=== PATIENT | male | born 2000 | race Caucasian/White ===

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

== ENCOUNTER 2023-09-19 06:01 | Emergency (ER) | payer BC, OTHER, SELFPAY ==
--- NOTE | ~2023-09-19 | XR_ITS ---
EXAMINATION: XR chest 1V portable INDICATION: Upper back pain TECHNIQUE: Portable AP chest at 0804 hours COMPARISON: 02/01/2005 FINDINGS: The lungs are free of acute opacities. No pleural effusion or pneumothorax. The cardiomedia stinal silhouette is normal. The visualized bones and soft tissues are unremarkable. IMPRESSION: 1. No acute cardiopulmonary abnormality. Reviewed, dictated and finalized at location B. ATTENDANT
[2023-09-19 06:03] VITALS: BP 135/80; PULSE 80; RESP 18; TEMP 36.2; O2SAT 98
--- NOTE | 2023-09-19 07:05 | PC.NURSE ---
Bedside report to LIEN Mora. Pt resting quietly with visitor at bedside.
--- NOTE | 2023-09-19 07:37 | ECG_ITS ---
Measurements Intervals [place] Rate: 71 P: 59 CT: 128 QRS: 66 QRSD: 88 T: 56 QT: 349 QTc: 381 Interpretive Statements SINUS RHYTHM EARLY REPOLARIZATION NORMAL ECG NO PREVIOUS ECG AVAILABLE FOR COMPARISON Electronically Signed On 09-19-2023 18:16:02 [employer] by Anuel Salas M.D.
--- NOTE | 2023-09-19 07:38 | ED.BACK ---
HPI - Back Pain/Injury General Chief Complaint: Back Pain/Injury Stated Complaint: Back pain Time Seen by Provider: 09/19/23 06:54 History of Present Illness HPI Narrative: 23-year-old male presents to the emergency department for evaluation sharp upper back pain that is worsened with inspiration. Patient states symptoms started few days ago and been persistent. The patient states the pain is worsened with deep inspiration and pain is sharp. Patient states pain does not radiate to his chest. Patient denies any associated shortness of breath. Patient denies any resident of injury, cough colds or fevers, denies any prior history PE or DVT. Patient does not take any medications denies any significant past medical history. Related Data Allergies Allergy/AdvReac Type Severity Reaction Status Date / Time No Known Allergies Allergy Verified 09/19/23 06:06 Review of Systems Review of Systems: All systems reviewed & are unremarkable except as noted in HPI and below PMFSH Past Medical History Medical History (Updated 09/19/23 @ 09:13 by Mickey Claudio MD) No significant past medical history Surgical History Surgical History (Updated 02/14/21 @ 10:43 by Elida Agee, METAL BUFFER) No significant past surgical history Family History Family History (Updated 02/14/21 @ 10:43 by Elida Agee, METAL BUFFER) Other No significant family history Social History Social History (Updated 02/14/21 @ 10:44 by Elida Agee, METAL BUFFER) Smoking status: Former smoker Alcohol intake: never Substance use: never Living arrangements: with family Gender identity (if verbalized by the patient): Male Exam Narrative: APPEARANCE: Well appearing, no pain, no distress, well-nourished. HEAD: normocephalic, atraumatic. EYES: PERRLA/EOMI, conjunctivae clear. NOSE: Normal no drainage EARS:TMS clear with good light reflex. THROAT: Pharynx clear, no exudate. NECK: Supple. No adenopathy, no masses. RESPIRATORY: Airway patent, respirations nonlabored. Clear to auscultation bilaterally, no rales, rhonchi, wheezing. CARDIOVASCULAR: Regular rate and rhythm without murmurs rubs or gallops. ABDOMINAL: Soft, nontender, nondistended, normal bowel sounds MUSCULOSKELETAL: Reported pain at the upper back with no reproducible tenderness to palpation. NEURO: Alert. Cranial nerves II through XII intact. Grossly intact SKIN: Warm, dry. Normal Color Course Course Emergency Course: Patient had a negative workup and is being treated as pleurisy versus musculoskeletal. Patient was prescribed Flexeril for spasm and advised to take scheduled anti-inflammatories. Vital Signs Vital signs: Vital Signs Temperature 97.1 F L 09/19/23 06:03 Pulse Rate 80 09/19/23 06:03 Respiratory Rate 18 09/19/23 06:03 Blood Pressure 135/80 09/19/23 06:03 Pulse Oximetry 98 09/19/23 06:03 Oxygen Delivery Room Air 09/19/23 06:03 Temperature 97.1 F L 09/19/23 06:03 Pulse Rate 78 09/19/23 09:34 Respiratory Rate 16 09/19/23 09:34 Blood Pressure 136/88 09/19/23 09:34 Pulse Oximetry 98 09/19/23 09:34 Oxygen Delivery Room Air 09/19/23 06:03 MDM - Back Pain/Injury MDM Narrative Medical decision making narrative: 23-year-old male presenting ED for evaluation her back pain. Patient's pain is very pleuritic in nature. Patient had EKG ordered to evaluate for cardiac etiology. D-dimer was ordered to evaluate for pulmonary embolism. Toradol was ordered for the patient's pain. On re-evaluation patient states he did not have significant improvement of his symptoms but patient is resting comfortably. Patient is afebrile with no leukocytosis and a stable hemoglobin of 15.8. Patient's D-dimer was negative. Patient had has no acute abnormalities on his CMP than a mildly elevated T bili but AST ALT alk-phos were normal. Patient was negative for influenza RSV and for COVID. Chest x-ray showed no acute cardiopulmonary abnormalit
[2023-09-19 07:49] VITALS: BP 112/82; PULSE 66; RESP 16; O2SAT 100
[2023-09-19] MEDS: KETOROLAC 15 MG/ML VIAL (*BKC) IV PUSH (07:59)
[2023-09-19 08:00] LABS: Basophils Absolute Auto 0.1 K/mm3 (0.0-0.1); Basophils Percent Auto 1.1 % (0.2-1.2); Eosinophils Absolute Auto 0.1 K/mm3 (0-0.3); Eosinophils Percent Auto 2.3 % (0-4.4); Hematocrit 47.5 % (42.0-52.0); Hemoglobin 15.8 g/dL (14.0-18.0); Immature Granulocyte Absolute 0.06 K/mm3 (0.00-0.031); Immature Granulocyte Percent A 1.1 % (0-0.5); Lymphocytes Absolute Auto 1.55 K/mm3 (0.9-3.2); Lymphocytes Percent Auto 29.2 % (18.3-44.2); Mean Corpuscular HGB Conc 33.3 g/dl (32-36); Mean Corpuscular Hemoglobin 29.1 pg (26-34); Mean Corpuscular Volume 87.5 fl (80-100); Mean Platelet Volume 10.1 fl (7.4-10.4); Monocytes Absolute Auto 0.5 K/mm3 (0.1-0.6); Monocytes Percent Auto 8.5 % (2.6-8.5); Neutrophils Absolute Auto 3.1 K/mm3 (1.3-6.7); Neutrophils Percent Auto 57.8 % (45.5-73.1); Platelet Count Result 240 k/mm3 (150-375); Red Blood Count 5.43 M/mm3 (4.6-6.20); White Blood Count 5.3 K/mm3 (4.5-10.0)
[2023-09-19 08:09] LABS: Alanine Aminotransferase 15 U/L (6-50); Albumin Level 4.4 g/dL (3.5-5.1); Alkaline Phosphatase 54 U/L (38-126); Anion Gap 7 mmol/L (8-16); Aspartate Amino Transferase 25 U/L (17-59); Bilirubin,Total 1.5 mg/dL (0.2-1.3); Blood Urea Nitrogen 18 mg/dL (9-20); Calcium 9.2 mg/dL (8.4-10.2); Carbon Dioxide 30 mmol/L (22-30); Chloride 104 mmol/L (98-107); Estimated CRCL calculation 122 ml/min; Estimated Glomerular Filt Rate > 60; Glucose 95 mg/dL (65-110); Potassium 4.2 mmol/L (3.4-5.0); Sodium 141 mmol/L (137-145)
[2023-09-19 08:31] LABS: D Dimer 0.23 ug/mL (<0.48)
[2023-09-19 08:35] LABS: Influenza A QL RT-PCR Negative (Negative); Influenza B QL RT-PCR Negative (Negative); RSV RNA, RT-PCR Negative (Negative); SARS-CoV-2 RNA PCR Negative (Negative)
[2023-09-19 09:34] VITALS: BP 136/88; PULSE 78; RESP 16; O2SAT 98
== END 2023-09-19 09:35 | disposition home or self-care (01) ==
PROVIDERS: Emergency Provider Emergency Medicine; PCP Pediatrics
DX: M54.6 Pain in thoracic spine (principal); Z20.822 Contact with and (suspected) exposure to COVID-19; Z87.891 Personal history of nicotine dependence
CPT/HCPCS: 36415; 71045; 80053; 85025; 85380; 87637; 93005; 96374; 99284; J1885

== ENCOUNTER 2024-03-23 07:19 | Emergency (ER) | payer OTHER, SELFPAY ==
--- NOTE | ~2024-03-23 | XR_ITS ---
Right wrist Technique: PA, oblique, lateral, and ulnar deviation views were obtained. Clinical History: Pain Findings: No acute fracture or dislocation is seen. Osseous alignment is anatomic. Joint spaces are p reserved. Soft tissues are unremarkable. Impression: Unremarkable right wrist radiographs. Reviewed, dictated and finalized at location . Impression: Unremarkable right wrist radiographs.
[2024-03-23 07:19] VITALS: BP 135/82; PULSE 64; RESP 16; TEMP 36.6; O2SAT 98
[2024-03-23 07:25] VITALS: BP 128/92; PULSE 83; RESP 16; O2SAT 99
--- NOTE | 2024-03-23 07:36 | ED.GENADULT ---
HPI - General Adult General Chief complaint: Extremity Injury, Upper Stated complaint: R WRIST INJURY Time Seen by Provider: 03/23/24 07:21 History of Present Illness HPI narrative: 23-year-old male presenting to the emergency department for evaluation for a ground level fall. Patient was walking at work and caring items when he tripped over a wire and fell forward and injured his right wrist. Patient has increased pain with dorsal and palmar flexion of the right wrist. No deformity, no ecchymosis, neurovascularly intact. Patient denies any other pain or injury. Related Data Allergies Allergy/AdvReac Type Severity Reaction Status Date / Time No Known Allergies Allergy Verified 09/19/23 06:06 Review of Systems Review of Systems: All systems reviewed & are unremarkable except as noted in HPI and below PMFSH Past Medical History Medical History (Updated 03/23/24 @ 07:48 by Mickey Claudio MD) No significant past medical history Surgical History Surgical History (Updated 02/14/21 @ 10:43 by Elida Agee, DERRICK HAND) No significant past surgical history Family History Family History (Updated 02/14/21 @ 10:43 by Elida Agee, DERRICK HAND) Other No significant family history Social History Social History (Updated 02/14/21 @ 10:44 by Elida Agee, DERRICK HAND) Smoking status: Former smoker Alcohol intake: never Substance use: never Living arrangements: with family Gender identity (if verbalized by the patient): Male Exam Narrative: APPEARANCE: Well appearing, no pain, no distress, well-nourished. HEAD: normocephalic, atraumatic. EYES: PERRLA/EOMI, conjunctivae clear. NOSE: Normal no drainage RESPIRATORY: Airway patent, respirations nonlabored. Clear to auscultation bilaterally, no rales, rhonchi, wheezing. CARDIOVASCULAR: Regular rate and rhythm without murmurs rubs or gallops. ABDOMINAL: Soft, nontender, nondistended, normal bowel sounds MUSCULOSKELETAL: Right wrist pain with limited range of motion NEURO: Alert. Cranial nerves II through XII intact. Grossly intact SKIN: Warm, dry. Normal Color Course Course Emergency Course: X-rays were negative for acute fracture dislocation. Patient was provided Leroy wrap for comfort discharged home. Vital Signs Vital signs: Vital Signs Temperature 97.9 F 03/23/24 07:19 Pulse Rate 64 03/23/24 07:19 Respiratory Rate 16 03/23/24 07:19 Blood Pressure 135/82 03/23/24 07:19 Pulse Oximetry 98 03/23/24 07:19 Oxygen Delivery Room Air 03/23/24 07:19 Temperature 97.9 F 03/23/24 07:19 Pulse Rate 77 03/23/24 08:01 Respiratory Rate 16 03/23/24 08:01 Blood Pressure 107/81 03/23/24 08:01 Pulse Oximetry 98 03/23/24 08:01 Oxygen Delivery Room Air 03/23/24 07:19 Medical Decision Making MDM Narrative Medical decision making narrative: 23-year-old male presenting to the emergency department for evaluation for right wrist pain. X-rays were negative for acute fracture dislocation. Patient was provided Leroy wrap for comfort. Patient was advised to take Tylenol and ibuprofen for pain control. Differential Diagnosis Differential Diagnosis: Wrist sprain, wrist fracture Vital Signs Vital Signs: Vital Signs Temperature 97.9 F 03/23/24 07:19 Pulse Rate 64 03/23/24 07:19 Respiratory Rate 16 03/23/24 07:19 Blood Pressure 135/82 03/23/24 07:19 Pulse Oximetry 98 03/23/24 07:19 Oxygen Delivery Room Air 03/23/24 07:19 Temperature 97.9 F 03/23/24 07:19 Pulse Rate 77 03/23/24 08:01 Respiratory Rate 16 03/23/24 08:01 Blood Pressure 107/81 03/23/24 08:01 Pulse Oximetry 98 03/23/24 08:01 Oxygen Delivery Room Air 03/23/24 07:19 Imaging Data Radiologist's impression: Impressions Wrist X-Ray 03/23/24 07:38 Impression: Unremarkable right wrist radiographs. Discharge Plan Discharge Clinical Impression: Sprain and strain of wrist Patient
[2024-03-23 07:46] VITALS: BP 122/84; PULSE 79; RESP 16; O2SAT 100
[2024-03-23 08:01] VITALS: BP 107/81; PULSE 77; RESP 16; O2SAT 98
== END 2024-03-23 08:05 | disposition home or self-care (01) ==
PROVIDERS: Emergency Provider Emergency Medicine; PCP Pediatrics
DX: S63.501A Unspecified sprain of right wrist, initial encounter (principal); S66.911A Strain of unspecified muscle, fascia and tendon at wrist and hand level, right hand, initial encounter; W18.09XA Striking against other object with subsequent fall, initial encounter
CPT/HCPCS: 73110; 99283

== ENCOUNTER 2025-01-29 07:54 | Emergency (ER) | payer OTHER, SELFPAY ==
--- OUTSIDE RECORDS SUMMARY | 2025-01-29 07:57 | XMS_ITS | Referral Summary ---
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 Gender Identity Not on file Sexual Orientation Not on file Last Filed Vital Signs Vital Sign Reading Time Taken Comments Blood Pressure 131/86 03/08/2022 10:08 AM CDT Pulse 81 03/08/2022 10:08 AM CDT Temperature 36.7 C (98 F) 03/08/2022 10:08 AM CDT Respiratory Rate 16 03/08/2022 10:08 AM CDT Oxygen Saturation 98% 03/08/2022 10:08 AM CDT Inhaled Oxygen Concentration - - Weight 64.5 kg (142 lb 3.2 oz) 03/08/2022 10:08 AM CDT Height 177.8 cm (5' 10) 03/08/2022 10:08 AM CDT Body Mass Index 20.4 03/08/2022 10:08 AM CDT Plan of Treatment Not on file Insurance WORK[employer] COMPENSATION [place] [place] [id number] Care Teams Adult Live In Caregiver Relationship Specialty Start Date End Date Mikki Craig MD [address] [place] [address] PCP - General Pediatrics 03/08/22
--- OUTSIDE RECORDS SUMMARY | 2025-01-29 07:57 | XMS_ITS | Clinical Summary ---
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 Gender Identity Not on file Sexual Orientation [...] 03/08/2022 10:08 AM CDT Plan of Treatment Health Maintenance Due Date Last Done Comments Depression Screening 2002 Hepatitis C Screening 2002 Meningococcal B Vaccine (1 o f 2 - Standard) 2018 Regular Well Visit/Exam 18-64 2020 DTaP/Tdap/Td Vaccine (7 - Td or Tdap) 01/23/2024 01/22/2014, 08/11/2007, 10/17/2003, Additional history exists Covid-19 Vaccine (2023-2 5 season) 2024 10/30/2020 Influenza Vaccine (Season Ended) 2025 Hepatitis B Screening Completed 07/12/2003 , 2002, 2002 Pneumococcal vaccine <65 Completed 003, 01/04/2003, 2002, Additional history exists Varicella Vaccines Completed 08/11/2007, 10/17/2003 HPV Vaccines Completed 02/28/2017, 01/22/2014 Insurance [employer] COMP[employer] [address] Care Teams Manager Front Relationship Specialty Start Date End Date Mikki Craig MD [address] [place] [address] PCP - General Pediatrics 03/08/22
[2025-01-29 07:58] VITALS: BP 137/86; PULSE 81; RESP 19; TEMP 36.6; O2SAT 98
--- NOTE | 2025-01-29 08:05 | ED.GIBLEED ---
HPI - GI Bleed General Chief complaint: GI Bleed Stated complaint: blood in stool Time Seen by Provider: 01/29/25 08:04 Source: patient Mode of arrival: ambulatory Limitations: no limitations History of Present Illness HPI Narrative: 24 YEARS OLD WHITE MALE COMPLAINING OF FRESH RED BRIGHT BLOOD ON THE WIPES AFTER HAVING A BOWEL MOVEMENT THIS MORNING. PATIENT REPORT HAVING SIMILAR SYMPTOM 1 YEAR AGO. PATIENT REPORTS SOME ITCHING AT THE ANAL AREA FOR ABOUT 1 MONTH. SLIGHT DISCOMFORT. PATIENT IS HEALTHY OTHERWISE. Related Data Allergies Allergy/AdvReac Type Severity Reaction Status Date / Time No Known Allergies Allergy Verified 01/29/25 08:02 Review of Systems Review of Systems: All systems reviewed & are unremarkable except as noted in HPI and below PMFSH Past Medical History Medical History No significant past medical history Surgical History Surgical History No significant past surgical history Family History Family History Other No significant family history Social History Social History Smoking status: Former smoker Alcohol intake: never Substance use: never Living arrangements: with family Gender identity (if verbalized by the patient): Male Exam Narrative: GENERAL APPEARANCE: WELL-DEVELOPED, WELL-NOURISHED SKIN: NORMAL COLOR HEAD: NORMOCEPHALIC, NONTRAUMATIC EYES: CLEAR CONJUNCTIVA ENT: OROPHARYNX NORMAL, EARS NORMAL, NOSE NORMAL NECK: SUPPLE, NONTENDER CHEST AND RESPIRATORY: AIRWAY PATENT, NO RESPIRATORY DISTRESS, NO ACCESSORY MUSCLE USE HEART: REGULAR RATE/RHYTHM ABDOMEN: SOFT, NONTENDER, NO ORGANOMEGALY, QUIET BOWEL SOUNDS, RECTAL EXAM POSITIVE FOR EXTERNAL HEMORRHOID, NO ACTIVE BLEEDING, GUAIAC NEGATIVE VASCULAR: NORMAL PERIPHERAL PULSES, NORMAL CAPILLARY REFILL. MUSCULOSKELETAL: NORMAL RANGE OF MOTION, NONTENDER BACK NEUROLOGIC: ALERT AND ORIENTED ?3, PROPERTY PRESERVATION SPECIALIST IS NORMAL TESTED, NO GROSS MOTOR DEFICIT Course Vital Signs Vital signs: Vital Signs Temperature 36.6 C 01/29/25 07:58 Pulse Rate 81 01/29/25 07:58 Respiratory Rate 19 01/29/25 07:58 Blood Pressure 137/86 01/29/25 07:58 Pulse Oximetry 98 01/29/25 07:58 Oxygen Delivery Room Air 01/29/25 07:58 Temperature 36.6 C 01/29/25 07:58 Pulse Rate 81 01/29/25 07:58 Respiratory Rate 19 01/29/25 07:58 Blood Pressure 137/86 01/29/25 07:58 Pulse Oximetry 98 01/29/25 07:58 Oxygen Delivery Room Air 01/29/25 07:58 MDM - GI Bleed MDM Narrative Medical decision making narrative: RECTAL BLEED VITAL SIGNS ARE STABLE PHYSICAL EXAMINATION POSITIVE FOR EXTERNAL HEMORRHOIDS DISCHARGED ON ANUSOL SUPPOSITORY AND COLACE Critical Care Time Critical Care Time Critical Care Time: No Discharge Plan Discharge Clinical Impression: Hemorrhoids Patient Disposition: Home Condition: Stable Instructions: Hemorrhoids (ED) Additional Instructions: RETURN IF SYMPTOMS ARE WORSENING , CALL YOUR FAMILY PHYSICIAN FOR APPOINTMENT, TAKE TYLENOL NEEDED FOR ACHES AND PAIN, CONTINUE HOME MEDICATIONS. Patient Language: [place] Irish Prescriptions: New hydrocortisone acetate [Anucort-HC] 25 mg suppository 25 mg RECTAL BID Qty: 24 0RF docusate sodium [Colace] 100 mg capsule 100 mg PO BID Qty: 20 0RF No Action doxycycline monohydrate 100 mg tablet 100 mg PO BID 10 Days Qty: 20 0RF cyclobenzaprine 10 mg tablet 10 mg PO BID PRN (Reason: muscle spasm) Qty: 14 0RF Follow-up/Referrals: Mikki Craig MD [Primary Care Provider] - Stand Alone Forms: Work/School Release IP
[2025-01-29 08:13] LABS: Hematocrit 44.9 % (42.0-52.0); Hemoglobin 15.5 g/dL (14.0-18.0); Immature Granulocyte Percent A 0.2 % (0-0.5); Lymphocytes Absolute Auto 1.59 K/mm3 (0.9-3.2); Mean Corpuscular HGB Conc 34.5 g/dl (32-36); Mean Corpuscular Hemoglobin 29.9 pg (26-34); Mean Corpuscular Volume 86.5 fl (80-100); Nucleated Red Blood Cells Absolute Auto 0.000 K/mm3 (0.0-0.012); Nucleated Red Blood Cells Perc 0.0 % (0.0-0.2); Platelet Count Result 267 k/mm3 (150-375); Red Blood Count 5.19 M/mm3 (4.6-6.20); White Blood Count 6.0 K/mm3 (4.5-10.0)
[2025-01-29 08:27] LABS: INR 1.1; Prothrombin Time 14.0 Seconds (11.1-14.7)
[2025-01-29 08:28] LABS: Partial Thromboplastin Time 25.4 Seconds (22.3-36.8)
[2025-01-29 09:24] LABS: Alanine Aminotransferase 15 U/L (6-50); Albumin Level 4.6 g/dL (3.5-5.1); Alkaline Phosphatase 39 U/L (38-126); Anion Gap 10 mmol/L (4-12); Aspartate Amino Transferase 33 U/L (17-59); Bilirubin,Total 2.8 mg/dL (0.2-1.3); Blood Urea Nitrogen 17 mg/dL (9-20); Calcium 9.5 mg/dL (8.4-10.2); Carbon Dioxide 27 mmol/L (22-30); Chloride 102 mmol/L (98-107); Estimated CRCL calculation 108 ml/min; Estimated Glomerular Filt Rate > 60; Glucose 104 mg/dL (65-110); Potassium 3.9 mmol/L (3.4-5.0); Sodium 139 mmol/L (137-145); Total Protein 7.5 g/dL (6.3-8.2)
== END 2025-01-29 08:39 | disposition home or self-care (01) ==
PROVIDERS: Emergency Provider Emergency Medicine; PCP Pediatrics
DX: K64.9 Unspecified hemorrhoids (principal); Z87.891 Personal history of nicotine dependence
CPT/HCPCS: 36415; 80053; 85025; 85610; 85730; 86850; 86900; 86901; 99283

== ENCOUNTER 2025-03-06 14:22 | Emergency (ER) | payer OTHER, SELFPAY ==
[2025-03-06] VITALS (25 sets, daily range): BP systolic 119–147; BP diastolic 73–97; PULSE 87–128; RESP 13–24; TEMP 37.3–37.8; O2SAT 94–100
--- NOTE | ~2025-03-06 | CT_ITS ---
EXAMINATION: CT abdomen pelvis w con DATE: 03/07/2025 07:26 INDICATION: Perirectal abscess. TECHNIQUE: Computed tomography (CT) of the abdomen and pelvis was performed with 100 cc Omnipaque 350 intravenous contrast. The dose-length product was 261.36 mGy-cm. Automated exposure control and iter ative reconstruction technique were employed. COMPARISON: MRI lumbar spine dated 03/06/2025. FINDINGS: Lung bases unremarkable. Heart size normal. No significant pleural or pericardial effusion. There is abnormal thickening of the ascending and proximal transverse colon, consistent with colitis , most likely infectious/inflammatory. Fatty infiltration of the liver. The spleen, pancreas, adrenal glands and kidneys are unremarkable. Gallbladder is present. Barrios catheter present in the bladder. Small amount of nondependent gas in the bladder, iatrogenic most likely. No significant vascular abno rmality. No lymphadenopathy. No perirectal abscess identified. No free air or free fluid. There are s urgical changes of fusion between L1-L4. There is an L2 burst fracture with postoperative change of L 2 laminectomy. IMPRESSION: 1. Mural thickening ascending and proximal transverse colon, consistent with colitis, most likely inf ectious/inflammatory. 2: L2 burst fracture with postoperative change of L2 laminectomy and instrumented posterior spinal fu lucian at T12-L4. Reviewed, dictated and finalized at location A. IMPRESSION: 1. Mural thickening ascending and proximal transverse colon, consistent with co litis, most likely infectious/inflammatory. 2: L2 burst fracture with postoperative change of L2 laminectomy and instrument ed posterior spinal fusion at T12-L4.
--- NOTE | ~2025-03-06 | MR_ITS ---
EXAMINATION: MR lumbar spine wo/w con DATE: 03/06/2025 17:43 INDICATION: Urinary retention. Recent lumbar surgery. TECHNIQUE: Magnetic resonance imaging (MRI) of the lumbar spine was performed without and with 11 mL Multihance intravenous contrast. Sequences included sagittal T2-weighted FSE, sagittal T2-weighted FS FSE, and sagittal and axial T1-weighted FSE. Postcontrast sequences included axial T2-weighted FSE, sagittal T1-weighted FSE, and axial and sagittal T1-weighted FS FSE. COMPARISON: None FINDINGS: L2 burst fracture with 20% anterior to central vertebral body height loss and 4 mm retropulsion. This is spanned by instrumented posterior spinal fusion extending from T12 through L4. There is metallic magnetic field artifact associated with bilateral vertical laura and pedicle screw fixations at each of these levels. This somewhat limits evaluation of the immediately adjacent bone and soft tissues. L2 laminectomy and partial laminectomies at L1 and L3. There are peripherally enhancing fluid collection s extending craniocaudally around the bilateral vertical rods and pedicle screws which given the rece nt surgery are most likely to represent postoperative hematoma/stroma is although differential would include abscess in the appropriate clinical settings. Remaining vertebral body heights are normal. T1 and T2 hyperintense hemangioma at L5. Mild disc desiccation, mild disc height loss and annular fissu re at L5-S1. Remaining discs are normal. The conus medullaris terminates at L1. There is normal signa l in the caudal spinal cord. No abnormal enhancing cord lesions. There is no evident thickening of th e final terminale with normal appearance and distribution of the nerve roots of the cauda equina. The following disc levels are specifically discussed: T12-L1: The disc does not extend beyond the endplate margin. Instrumented posterior spinal fusion wit h magnetic field artifact. There is no neural foraminal stenosis. There is no central canal stenosis. L1-L2: The disc does not extend beyond the endplate margin. Instrumented posterior spinal fusion. The re is mild left neural foraminal stenosis. There is no central canal stenosis with posterior decompre ssion with L2 laminectomy. L2-L3: Mild disc protrusions at the bilateral foraminal zones. Instrumented posterior spinal fusion. There is minimal bilateral neural foraminal stenosis. There is no central canal stenosis with posteri or decompression. L3-L4: Disc is minimally bulging with annular fissure. Instrumented posterior spinal fusion. There is minimal bilateral neural foraminal stenosis. There is no central canal stenosis. L4-L5: The disc does not extend beyond the endplate margin. There is mild bilateral facet joint osteo arthritis. There is mild left and minimal right neural foraminal stenosis. There is no central canal stenosis. L5-S1: Disc is mildly bulging with annular fissure and superimposed small right paracentral disc prot rusion. There is mild bilateral facet joint osteoarthritis. There is mild bilateral, right greater th an left neural foraminal stenosis. There is mild central canal stenosis with mild narrowing of the ri ght lateral recess. IMPRESSION: 1. L2 burst fracture with postoperative change of recent L2 laminectomy, partial thickness at L1 and L3 and T12-L4 instrumented posterior spinal fusion with bilateral vertical laura and pedicle screw fixa tion. 2. Postoperative fluid collections extending craniocaudally along the bilateral vertical rods and ped icle screws most likely postoperative hematoma/seromas the differential would include abscess in the appropriate clinical setting. 3. Mild lumbosacral and minimal lumbar spondylosis. The filum terminale and cauda equina appear stormy l. Reviewed, dictated and finalized at location A. IMPRESSION: 1. L2 burst fracture with postoperative change of recent L2 laminectomy, partia l thickness at L1 and L3 and T12-L4 instrumented posterior spinal fusion with b ilateral vertical laura and pedicle screw fixation. 2. Postoperative fluid collections extending craniocaudally along the bilateral vertical rods and pedicle screws most likely postoperative hematoma/seromas th e differential would include abscess in the appropriate clinical setting. 3. Mild lumbosacral and minimal lumbar spondylosis. The filum terminale and cau da equina appear normal.
--- OUTSIDE RECORDS SUMMARY | 2025-03-06 14:25 | XMS_ITS | Clinical Summary ---
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 Moderately to severely decreased 30 - 44 mL/min/1.73m2 Severely decreased 15 - 29 mL/min/1.73m2 Kidney Failure < 15 mL/min/1.73m2 *Relative to young adult level Estimated glomerular filtration rate is determined by the 2020 CKD-EPI equation recommended by the National Kidney Foundation (A Unifying Approach to GFR Estimation: Recommendations of the NKF-ASK Task Force on Reassessing the Inclusion of Race in Diagnosing Kidney Disease, JASN 2020). The CKD-EPI equation should not be used for patients with unstable renal function and has not been validated in children and those over 70. Current interpretive data was last reviewed 2021. Blood 02/25/2025 11:0 1 PM CDT 02/25/2025 11:32 PM CDT us Micheal Pelaez MD LAB BLOOD ORDERABLES Final Resu lt [facility] Department [place] [address] * (ABNORMAL) Differential, auto (02/25/2025 11:01 PM CDT) Neutrophil abs 9.65(H) 1.50 - 6.50 K/cumm Imm gran abs 0.12(H) 0.00 - 0.10 K/cumm [facility] Lymphocyte abs 1.10 0.80 - 3.30 K/cumm [facility] Monocyte abs 1.59(H) 0.20 - 0.80 K/cumm [facility] Eosinophil abs 0.21 0.00 - 0.50 K/cumm [facility] Basophil abs 0.04 0.00 - 0.10 K/cumm [facility] Neutrophil pct 75.9 % [facility] Comment: Interpretive Data Percent cell count reference ranges are not reported, since discordance with absolute values may lead to misinterpretation of CBC data. Current Interpretive Data was last revised on 2017. Imm gran pct 0.9 % [facility] Comment: Interpretive Data Percent cell count reference ranges are not reported, since discordance with absolute values may lead to misinterpretation of CBC data. Current Interpretive Data was last revised on 2017. Lymphocyte pct 8.7 % [facility] Comment: Interpretive Data Percent cell count reference ranges are not reported, since discordance with absolute values may lead to misinterpretation of CBC data. Current Interpretive Data was last revised on 2017. Monocyte pct 12.5 % [facility] Comment: Interpretive Data Percent cell count reference ranges are not reported, since discordance with absolute values may lead to misinterpretation of CBC data. Current Interpretive Data was last revised on 2017. Eosinophil pct 1.7 % [facility] Comment: Interpretive Data Percent cell count reference ranges are not reported, since discordance with absolute values may lead to misinterpretation of CBC data. Current Interpretive Data was last revised on 2017. Basophil pct 0.3 % [facility] Comment: Interpretive Data Percent cell count reference ranges are not reported, since discordance with absolute values may lead to misinterpretation of CBC data. Current Interpretive Data was last revised on 2017. Blood 02/25/2025 11:0 1 PM CDT 02/25/2025 11:31 PM CDT Micheal Pelaez MD LAB BLOOD ORDERABLES Final Resu lt Performing Organization Address City/[facility]/ZIP Co de Phone Number [facility] Department [place] [address] * (ABNORMAL) CBC with auto differential (02/25/2025 11:01 PM CDT) WBC 12.71(H) 3.80 - 9.90 K/cumm Hgb 11.0(L) 13.0 - 17.5 g/dL [facility] Hct 31.4(L) 38.9 - 50.3 % [facility] Plt 248 150 - 400 K/cumm [facility] MPV 10.1 9.1 - 12.3 fL [facility] RBC 3.65(L) 4.30 - 5.80 M/cumm [facility] MCV 86.0 81.3 - 96.4 fL [facility] MCH 30.1 27.1 - 33.3 pg [facility] MCHC 35.0 32.3 - 35.7 g/dL [facility] RDW CV 12.1 11.1 - 14.9 % [facility] RDW SD 37.8 35.7 - 48.1 fL [facility] NRBC abs 0.00 0.00 - 0.01 K/cumm [facility] Blood 02/25/2025 11:0 1 PM CDT 02/25/2025 11:31 PM CDT Micheal Pelaez MD LAB BLOOD ORDERABLES Final Resu lt [facility] Department [place] [address] * (ABNORMAL) Basic metabolic panel (02/25/2025 11:01 PM CDT) Pathologist [facility] Sodium 136 135 - 145 mmol/L Potassium, pl 3.8 3.3 - 4.9 mmol/L [facility] Chloride 103 97 - 110 mmol/L [facility] CO2 27 22 - 32 mmol/L [facility] Anion gap 6 2 - 15 mmol/L [facility] BUN 16 6 - 25 mg/dL [facility] Creatinine 0.49(L) 0.80 - 1.30 mg/dL [facility] Glucose 95 70 - 199 mg/dL [facility] Comment: Interpretive Data Fasting glucose >/= 126 mg/dl is diagnostic for diabetes. Fasting is defined as no caloric intake for at least 8 hours. Fasting glucose between 100 mg/dl to 125 mg/dl is diagnostic of prediabetes. In a patient with classic symptoms of hyperglycemia or hyperglycemic crisis, a random glucose >/= 200 mg/dl is diagnostic for diabetes. In the absence of unequivocal hyperglycemia, results should be confirmed by repeat testing. The classification and Diagnosis of Diabetes Diabetes Care 2021; 46: S19-S40. Current interpretive data was last revised 2022. Calcium 7.9(L) 8.5 - 10.3 mg/dL [facility] Blood 02/25/2025 11:0 1 PM CDT 02/25/2025 11:32 PM CDT us Micheal Pelaez MD LAB BLOOD ORDERABLES Final Resu lt [facility] Department [place] [address] * eGFR (02/24/2025 9:07 PM CDT) [facility] eGFR >90 >=60 mL/min/1. 73 m2 Comment: Interpretive Data Reference Interval Normal >/= 90 mL/min/1.73m2 Mildly decreased* 60 - 89 mL/min/1.73m2 Mildly to moderately decreased 45 - 59 mL/min/1.73m2 Moderately to severely decreased 30 - 44 mL/min/1.73m2 Severely decreased 15 - 29 mL/min/1.73m2 Kidney Failure < 15 mL/min/1.73m2 *Relative to young adult level Estimated glomerular filtration rate is determined by the 2020 CKD-EPI equation recommended by the National Kidney Foundation (A Unifying Approach to GFR Estimation: Recommendations of the NKF-ASK Task Force on Reassessing the Inclusion of Race in Diagnosing Kidney Disease, JASN 2020). The CKD-EPI equation should not be used for patients with unstable renal function and has not been validated in children and those over 70. Current interpretive data was last reviewed 2021. Blood 02/24/2025 9:07 PM CDT 02/24/2025 9:20 PM CDT us Micheal Pelaez MD LAB BLOOD ORDERABLES Final Resu lt [facility] Department [place] [address] * (ABNORMAL) Differential, auto (02/24/2025 9:07 PM CDT) Neutrophil abs 7.93(H) 1.50 - 6.50 K/cumm Imm gran abs 0.07 0.00 - 0.10 K/cumm [facility] Lymphocyte abs 1.14 0.80 - 3.30 K/cumm [facility] Monocyte abs 1.66(H) 0.20 - 0.80 K/cumm [facility] Eosinophil abs 0.07 0.00 - 0.50 K/cumm [facility] Basophil abs 0.04 0.00 - 0.10 K/cumm [facility] Neutrophil pct 72.8 % [facility] Comment: Interpretive Data Percent cell count reference ranges are not reported, since discordance with absolute values may lead to misinterpretation of CBC data. Current Interpretive Data was last revised on 2017. Imm gran pct 0.6 % [facility] Comment: Interpretive Data Percent cell count reference ranges are not reported, since discordance with absolute values may lead to misinterpretation of CBC data. Current Interpretive Data was last revised on 2017. Lymphocyte pct 10.4 % [facility] Comment: Interpretive Data Percent cell count reference ranges are not reported, since discordance with absolute values may lead to misinterpretation of CBC data. Current Interpretive Data was last revised on 2017. Monocyte pct 15.2 % [facility] Comment: Interpretive Data Percent cell count reference ranges are not reported, since discordance with absolute values may lead to misinterpretation of CBC data. Current Interpretive Data was last revised on 2017. Eosinophil pct 0.6 % [facility] Comment: Interpretive Data Percent cell count reference ranges are not reported, since discordance with absolute values may lead to misinterpretation of CBC data. Current Interpretive Data was last revised on 2017. Basophil pct 0.4 % [facility] Comment: Interpretive Data Percent cell count reference ranges are not reported, since discordance with absolute values may lead to misinterpretation of CBC data. Current Interpretive Data was last revised on 2017. Blood 02/24/2025 9:07 PM CDT 02/24/2025 9:21 PM CDT us Micheal Pelaez MD LAB BLOOD ORDERABLES Final Resu lt [facility] Department [place] [address] * (ABNORMAL) CBC with auto differential (02/24/2025 9:07 PM CDT) WBC 10.91(H) 3.80 - 9.90 K/cumm Hgb 11.2(L) 13.0 - 17.5 g/dL [facility] Hct 32.1(L) 38.9 - 50.3 % [facility] Plt 219 150 - 400 K/cumm [facility] MPV 9.8 9.1 - 12.3 fL [facility] RBC 3.76(L) 4.30 - 5.80 M/cumm [facility] MCV 85.4 81.3 - 96.4 fL [facility] MCH 29.8 27.1 - 33.3 pg [facility] MCHC 34.9 32.3 - 35.7 g/dL [facility] RDW CV 12.2 11.1 - 14.9 % [facility] RDW SD 37.9 35.7 - 48.1 fL [facility] NRBC abs 0.00 0.00 - 0.01 K/cumm [facility] Blood 02/24/2025 9:07 PM CDT 02/24/2025 9:21 PM CDT us Micheal Pelaez MD LAB BLOOD ORDERABLES Final Resu lt [facility] Department [place] [address] * (ABNORMAL) Basic metabolic panel (02/24/2025 9:07 PM CDT) Pathologist [facility] Sodium 141 135 - 145 mmol/L Potassium, pl 4.4 3.3 - 4.9 mmol/L [facility] Chloride 105 97 - 110 mmol/L [facility] CO2 28 22 - 32 mmol/L [facility] Anion gap 8 2 - 15 mmol/L [facility] BUN 18 6 - 25 mg/dL [facility] Creatinine 0.58(L) 0.80 - 1.30 mg/dL [facility] Glucose 103 70 - 199 mg/dL [facility] Comment: Interpretive Data Fasting glucose >/= 126 mg/dl is diagnostic for diabetes. Fasting is defined as no caloric intake for at least 8 hours. Fasting glucose between 100 mg/dl to 125 mg/dl is diagnostic of prediabetes. In a patient with classic symptoms of hyperglycemia or hyperglycemic crisis, a random glucose >/= 200 mg/dl is diagnostic for diabetes. In the absence of unequivocal hyperglycemia, results should be confirmed by repeat testing. The classification and Diagnosis of Diabetes Diabetes Care 2021; 46: S19-S40. Current interpretive data was last revised 2022. Calcium 8.2(L) 8.5 - 10.3 mg/dL [facility] Blood 02/24/2025 9:07 PM CDT 02/24/2025 9:20 PM CDT Micheal Pelaez MD LAB BLOOD ORDERABLES Final Resu lt [facility] Department [place] [address] * XR Abdomen 1 View AP (02/24/2025 12:03 AM CDT) Anatomical Region Laterality Modality Body, Abdomen N/A Digital Radiogra phy 02/24/2025 7:28 AM CDT Impressions 02/24/2025 7:28 AM CDT Slight interval decrease in gaseous distention of small bowel and colon, possibly improving ileus. Side port of the gastric tube projects over the stomach. Electronically signed by: Ba Novoa M.D. Narrative 02/24/2025 7:28 AM CDT EXAMINATION: Abdomen, one view. HISTORY: Evaluation COMPARISON: 02/24/2020 Procedure Note Ba Novoa MD - 02/24/2025 EXAMINATION: Abdomen, one view. HISTORY: Evaluation COMPARISON: 02/24/2020 IMPRESSION: Slight interval decrease in gaseous distention of small bowel and colon, possibly improving ileus. Side port of the gastric tube projects over the stomach. Electronically signed by: Ba Novoa M.D. Micheal Pelaez MD IMG XR PROCEDURES Final Result * eGFR (02/23/2025 8:17 PM CDT) eGFR >90 >=60 mL/min/1. 73 m2 Comment: Interpretive Data Reference Interval Normal >/= 90 mL/min/1.73m2 Mildly decreased* 60 - 89 mL/min/1.73m2 Mildly to moderately decreased 45 - 59 mL/min/1.73m2 Moderately to severely decreased 30 - 44 mL/min/1.73m2 Severely decreased 15 - 29 mL/min/1.73m2 Kidney Failure < 15 mL/min/1.73m2 *Relative to young adult level Estimated glomerular filtration rate is determined by the 2020 CKD-EPI equation recommended by the National Kidney Foundation (A Unifying Approach to GFR Estimation: Recommendations of the NKF-ASK Task Force on Reassessing the Inclusion of Race in Diagnosing Kidney Disease, JASN 2020). The CKD-EPI equation should not be used for patients with unstable renal function and has not been validated in children and those over 70. Current interpretive data was last reviewed 2021. Blood 02/23/2025 8:17 PM CDT 02/23/2025 8:46 PM CDT us Micheal Pelaez MD LAB BLOOD ORDERABLES Final Resu lt [facility] Department [place] [address] * (ABNORMAL) Differential, auto (02/23/2025 8:17 PM CDT) Neutrophil abs 11.90(H) 1.50 - 6.50 K/cumm Imm gran abs 0.06 0.00 - 0.10 K/cumm [facility] Lymphocyte abs 0.74(L) 0.80 - 3.30 K/cumm [facility] Monocyte abs 1.40(H) 0.20 - 0.80 K/cumm [facility] Eosinophil abs 0.00 0.00 - 0.50 K/cumm [facility] Basophil abs 0.02 0.00 - 0.10 K/cumm [facility] Neutrophil pct 84.4 % [facility] Comment: Interpretive Data Percent cell count reference ranges are not reported, since discordance with absolute values may lead to misinterpretation of CBC data. Current Interpretive Data was last revised on 2017. Imm gran pct 0.4 % [facility] Comment: Interpretive Data Percent cell count reference ranges are not reported, since discordance with absolute values may lead to misinterpretation of CBC data. Current Interpretive Data was last revised on 2017. Lymphocyte pct 5.2 % [facility] Comment: Interpretive Data Percent cell count reference ranges are not reported, since discordance with absolute values may lead to misinterpretation of CBC data. Current Interpretive Data was last revised on 2017. Monocyte pct 9.9 % [facility] Comment: Interpretive Data Percent cell count reference ranges are not reported, since discordance with absolute values may lead to misinterpretation of CBC data. Current Interpretive Data was last revised on 2017. Eosinophil pct 0.0 % [facility] Comment: Interpretive Data Percent cell count reference ranges are not reported, since discordance with absolute values may lead to misinterpretation of CBC data. Current Interpretive Data was last revised on 2017. Basophil pct 0.1 % [facility] Comment: Interpretive Data Percent cell count reference ranges are not reported, since discordance with absolute values may lead to misinterpretation of CBC data. Current Interpretive Data was last revised on 2017. Blood 02/23/2025 8:17 PM CDT 02/23/2025 8:45 PM CDT us Micheal Pelaez MD LAB BLOOD ORDERABLES Final Resu lt [facility] Department [place] [address] * (ABNORMAL) CBC with auto differential (02/23/2025 8:17 PM CDT) WBC 14.12(H) 3.80 - 9.90 K/cumm Hgb 11.9(L) 13.0 - 17.5 g/dL [facility] Hct 33.7(L) 38.9 - 50.3 % [facility] Plt 214 150 - 400 K/cumm [facility] MPV 10.3 9.1 - 12.3 fL [facility] RBC 3.94(L) 4.30 - 5.80 M/cumm [facility] MCV 85.5 81.3 - 96.4 fL [facility] MCH 30.2 27.1 - 33.3 pg [facility] MCHC 35.3 32.3 - 35.7 g/dL [facility] RDW CV 11.9 11.1 - 14.9 % [facility] RDW SD 37.1 35.7 - 48.1 fL [facility] NRBC abs 0.00 0.00 - 0.01 K/cumm [facility] Blood 02/23/2025 8:17 PM CDT 02/23/2025 8:45 PM CDT Micheal Pelaez MD LAB BLOOD ORDERABLES Final Resu lt [facility] Department [place] [address] * (ABNORMAL) Basic metabolic panel (02/23/2025 8:17 PM CDT) Pathologist [facility] Sodium 136 135 - 145 mmol/L Potassium, pl 4.5 3.3 - 4.9 mmol/L [facility] Chloride 99 97 - 110 mmol/L [facility] CO2 28 22 - 32 mmol/L [facility] Anion gap 9 2 - 15 mmol/L [facility] BUN 14 6 - 25 mg/dL [facility] Creatinine 0.62(L) 0.80 - 1.30 mg/dL [facility] Glucose 117 70 - 199 mg/dL [facility] Comment: Interpretive Data Fasting glucose >/= 126 mg/dl is diagnostic for diabetes. Fasting is defined as no caloric intake for at least 8 hours. Fasting glucose between 100 mg/dl to 125 mg/dl is diagnostic of prediabetes. In a patient with classic symptoms of hyperglycemia or hyperglycemic crisis, a random glucose >/= 200 mg/dl is diagnostic for diabetes. In the absence of unequivocal hyperglycemia, results should be confirmed by repeat testing. The classification and Diagnosis of Diabetes Diabetes Care 2021; 46: S19-S40. Current interpretive data was last revised 2022. Calcium 8.5 8.5 - 10.3 mg/dL [facility] Blood 02/23/2025 8:17 PM CDT 02/23/2025 8:46 PM CDT Micheal Pelaez MD LAB BLOOD ORDERABLES Final Resu lt [facility] Department [place] [address] * XR Abdomen 1 View AP (02/23/2025 2:35 PM CDT) Anatomical Region Laterality Modality Body, Abdomen N/A Digital Radiogra phy 02/23/2025 7:49 PM CDT Impressions 02/23/2025 7:49 PM CDT Side port of the gastric tube projects over the stomach. Gaseous distention of small bowel and large bowel, possibly ileus. Electronically signed by: Ba Novoa M.D. Narrative 02/23/2025 7:49 PM CDT EXAMINATION: Abdomen, one view. HISTORY: Gastric tube COMPARISON: 02/23/2025 Procedure Note Ba Novoa MD - 02/23/2025 EXAMINATION: Abdomen, one view. HISTORY: Gastric tube COMPARISON: 02/23/2025 IMPRESSION: Side port of the gastric tube projects over the stomach. Gaseous distention of small bowel and large bowel, possibly ileus. Electronically signed by: Ba Novoa M.D. Micheal Pelaez MD IMG XR PROCEDURES Final Result * XR Kub (02/23/2025 10:50 AM CDT) Anatomical Region Laterality Modality Body, Abdomen N/A Digital Radiogra phy 02/23/2025 12:0 9 PM CDT Impressions 02/23/2025 12:17 PM CDT Interval advancement of the gastric tube, now with gastric tube tip overlies the gastric body and side-port overlies the distal esophagus. Recommend further advancement. Thoracolumbar spinal instrumentation present. Partially imaged gaseous distention of the small and large bowel loops, most likely from post operative ileus, not significantly changed. Dictated by: Kaushik Lazar MD The radiology attending physician has personally reviewed this study, and had reviewed and/or edited this written report and agrees with it. Electronically signed by: Zev Alfonso M.D. Narrative 02/23/2025 12:17 PM CDT EXAMINATION: Abdomen, one view. HISTORY: Check tube placement. COMPARISON: 02/23/2025, 7:52 AM Procedure Note Zev Alfonso MD - 02/23/2025 EXAMINATION: Abdomen, one view. HISTORY: Check tube placement. COMPARISON: 02/23/2025, 7:52 AM IMPRESSION: Interval advancement of the gastric tube, now with gastric tube tip overlies the gastric body and side-port overlies the distal esophagus. Recommend further advancement. Thoracolumbar spinal instrumentation present. Partially imaged gaseous distention of the small and large bowel loops, most likely from post operative ileus, not significantly changed. Dictated by: Kaushik Lazar MD The radiology attending physician has personally reviewed this study, and had reviewed and/or edited this written report and agrees with it. Electronically signed by: Zev Alfonso M.D. Micheal Pleaez MD IMG XR PROCEDURES Final Result * XR Abdomen Ap 1 Vw (02/23/2025 7:50 AM CDT) Anatomical Region Laterality Modality Body, Abdomen N/A Digital Radiogra phy 02/23/2025 9:27 AM CDT Impressions 02/23/2025 9:35 AM CDT Gastric tube tip and side-port overlies the distal esophagus. Recommend further advancement. Thoracolumbar spinal instrumentation present. Dictated by: Nesha Lloyd M.D. The radiology attending physician has personally reviewed this study, and had reviewed and/or edited this written report and agrees with it. Electronically signed by: Zev Alfonso M.D. Narrative 02/23/2025 9:35 AM CDT EXAMINATION: Abdomen, one view. HISTORY: Check tube placement. COMPARISON: 02/22/2025 Procedure Note Zev Alfonso MD - 02/23/2025 EXAMINATION: Abdomen, one view. HISTORY: Check tube placement. COMPARISON: 02/22/2025 IMPRESSION: Gastric tube tip and side-port overlies the distal esophagus. Recommend further advancement. Thoracolumbar spinal instrumentation present. Dictated by: Nesha Lloyd M.D. The radiology attending physician has personally reviewed this study, and had reviewed and/or edited this written report and agrees with it. Electronically signed by: Zev Alfonso M.D. Micheal Pelaez MD IMG XR PROCEDURES Final Result * Potassium, whole blood (02/22/2025 11:44 PM CDT) Potassium, bld 4.1 3.3 - 4.9 mmol/L Blood 02/22/2025 11:4 4 PM CDT 02/22/2025 11:54 PM CDT Gin Borrego MD LAB BLOOD ORDERABLES Final Result [facility] Department [place] [address] * eGFR (02/22/2025 11:44 PM CDT) eGFR >90 >=60 mL/min/1. 73 m2 Comment: Interpretive Data Reference Interval Normal >/= 90 mL/min/1.73m2 Mildly decreased* 60 - 89 mL/min/1.73m2 Mildly to moderately decreased 45 - 59 mL/min/1.73m2 Moderately to severely decreased 30 - 44 mL/min/1.73m2 Severely decreased 15 - 29 mL/min/1.73m2 Kidney Failure < 15 mL/min/1.73m2 *Relative to young adult level Estimated glomerular filtration rate is determined by the 2020 CKD-EPI equation recommended by the National Kidney Foundation (A Unifying Approach to GFR Estimation: Recommendations of the NKF-ASK Task Force on Reassessing the Inclusion of Race in Diagnosing Kidney Disease, JASN 2020). The CKD-EPI equation should not be used for patients with unstable renal function and has not been validated in children and those over 70. Current interpretive data was last reviewed 2021. Blood 02/22/2025 11:4 4 PM CDT 02/23/2025 12:10 AM CDT us Micheal Pelaez MD LAB BLOOD ORDERABLES Final Resu lt [facility] Department [place] [address] * (ABNORMAL) Differential, auto (02/22/2025 11:44 PM CDT) Neutrophil abs 10.78(H) 1.50 - 6.50 K/cumm Imm gran abs 0.04 0.00 - 0.10 K/cumm [facility] Lymphocyte abs 0.86 0.80 - 3.30 K/cumm [facility] Monocyte abs 0.90(H) 0.20 - 0.80 K/cumm [facility] Eosinophil abs 0.01 0.00 - 0.50 K/cumm [facility] Basophil abs 0.01 0.00 - 0.10 K/cumm [facility] Neutrophil pct 85.6 % [facility] Comment: Interpretive Data Percent cell count reference ranges are not reported, since discordance with absolute values may lead to misinterpretation of CBC data. Current Interpretive Data was last revised on 2017. Imm gran pct 0.3 % [facility] Comment: Interpretive Data Percent cell count reference ranges are not reported, since discordance with absolute values may lead to misinterpretation of CBC data. Current Interpretive Data was last revised on 2017. Lymphocyte pct 6.8 % [facility] Comment: Interpretive Data Percent cell count reference ranges are not reported, since discordance with absolute values may lead to misinterpretation of CBC data. Current Interpretive Data was last revised on 2017. Monocyte pct 7.1 % [facility] Comment: Interpretive Data Percent cell count reference ranges are not reported, since discordance with absolute values may lead to misinterpretation of CBC data. Current Interpretive Data was last revised on 2017. [facility]osinophil pct 0.1 % [facility] Comment: Interpretive Data Percent cell count reference ranges are not reported, since discordance with absolute values may lead to misinterpretation of CBC data. Current Interpretive Data was last revised on 2017. Basophil pct 0.1 % [facility] Comment: Interpretive Data Percent cell count reference ranges are not reported, since discordance with absolute values may lead to misinterpretation of CBC data. Current Interpretive Data was last revised on 2017. Blood 02/22/2025 11:4 4 PM CDT 02/23/2025 12:10 AM CDT Micheal Pelaez MD LAB BLOOD ORDERABLES Final Resu lt [facility] Department [place] [address] * (ABNORMAL) CBC with auto differential (02/22/2025 11:44 PM CDT) WBC 12.60(H) 3.80 - 9.90 K/cumm Hgb 11.8(L) 13.0 - 17.5 g/dL [facility] Hct 34.8(L) 38.9 - 50.3 % [facility] Plt 236 150 - 400 K/cumm [facility] MPV 10.7 9.1 - 12.3 fL [facility] RBC 4.02(L) 4.30 - 5.80 M/cumm [facility] MCV 86.6 81.3 - 96.4 fL [facility] MCH 29.4 27.1 - 33.3 pg [facility] MCHC 33.9 32.3 - 35.7 g/dL [facility] RDW CV 12.0 11.1 - 14.9 % [facility] RDW SD 38.3 35.7 - 48.1 fL [facility] NRBC abs 0.00 0.00 - 0.01 K/cumm [facility] Blood 02/22/2025 11:4 4 PM CDT 02/23/2025 12:10 AM CDT Micheal Pelaez MD LAB BLOOD ORDERABLES Final Resu lt [facility] Department [place] [address] * (ABNORMAL) Basic metabolic panel (02/22/2025 11:44 PM CDT) Sodium 136 135 - 145 mmol/L Potassium, pl 4.1 3.3 - 4.9 mmol/L [facility] Chloride 100 97 - 110 mmol/L [facility] CO2 29 22 - 32 mmol/L [facility] Anion gap 7 2 - 15 mmol/L [facility] BUN 12 6 - 25 mg/dL [facility] Creatinine 0.61(L) 0.80 - 1.30 mg/dL [facility] Glucose 124 70 - 199 mg/dL [facility] Comment: Interpretive Data Fasting glucose >/= 126 mg/dl is diagnostic for diabetes. Fasting is defined as no caloric intake for at least 8 hours. Fasting glucose between 100 mg/dl to 125 mg/dl is diagnostic of prediabetes. In a patient with classic symptoms of hyperglycemia or hyperglycemic crisis, a random glucose >/= 200 mg/dl is diagnostic for diabetes. In the absence of unequivocal hyperglycemia, results should be confirmed by repeat testing. The classification and Diagnosis of Diabetes Diabetes Care 2021; 46: S19-S40. Current interpretive data was last revised 2022. Calcium 8.2(L) 8.5 - 10.3 mg/dL [facility] Blood 02/22/2025 11:4 4 PM CDT 02/23/2025 12:10 AM CDT Micheal Pelaez MD LAB BLOOD ORDERABLES Final Resu lt [facility] Department [place] [address] * XR Abdomen Ap 1 Vw (02/22/2025 8:43 PM CDT) Anatomical Region Laterality Modality Body, Abdomen N/A Digital Radiogra phy 02/23/2025 7:34 AM CDT Impressions 02/23/2025 7:34 AM CDT Gas is filling the entire colon and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
--- OUTSIDE RECORDS SUMMARY | 2025-03-06 14:25 | XMS_ITS | Continuity of Care Document ---
Author Organization [facility] Address [address] [place] [address] Phone Care Team Providers Care Plane Runner Name Role Phone Conversion MD, Doctor Unavailable Unavailabl e Medications Medication Instructions Dosage Effective Dates (start - stop) Status Comments AUGMENTIN ES-600 600-42.9/5 ML 5 BID - Active NASONEX 50 MCG NASAL SPRAY 1 QD - Active AUGMENTIN 400-57MG/5 ML 5 BID - Active ALBUTEROL SULFATE 0.83MG/ML ML 3 Q 4HR - Active PULMICORT 0.25 MG/2 ML RESPUL 2 QAM - Active BRONCHO SALINE AEROSOL SOLN 2 DIRECTE - No Longer Active ALBUTEROL 5 MG/ML SOLUTION .25 Q 4HR - No Longer Active NASONEX 50 MCG NASAL SPRAY 1 QD - No Longer Active PULMICORT 0.25 MG/2 ML RESPUL 2 QAM - No Longer Active NASONEX 50 MCG NASAL SPRAY 1 QD - No Longer Active PULMICORT 0.25MG/2ML RESPUL 2 QAM - No Longer Active NASONEX 50MCG APPLICS 1 QD - No Longer Active PULMICORT 0.25MG/2ML ML 2 QAM - No Longer Active ALBUTEROL 5MG/ML SOLUTION .25 Q 4HR - No Longer Active BRONCHO SALINE AEROSOL SOLN 2 DIRECTE - No Longer Active BRONCHO SALINE 0.9% ML 2 DIRECTE - No Longer Active ALBUTEROL SULFATE 5MG/ML ML .25 Q 4HR - No Longer Active Advance Directives Directive Yes / No Effective Date File Name No Information Encounters Encounter Description Practice Location Reason(s) For Visit Diagnoses Date Provider Providers Copied on Encounter [facility], [address], [place], [place], [id number], [place] tel:[phone] Conversion Department No Information 1 Conversion [place] [facility], [address], . Family History Family Member Type Diagnosis Age At Onset No Information Payers Payer name Insurance type Covered alliance party ID Authoriza tion(s) No Information Social History Type Description Quantity Date Captured Comments Sex Male Smoking Status No Information Chief Complaint And Reason For Visit No Information Reason For Referral Reason For Referral No Information History Of Present Illness Encounter Date Complaint History Of Prese nt Illness No Information Functional Status Date Functional Assessmen t No Information Medications Administered Medication Instructions Dosage Effective Dates (start - stop) Status Comments BRONCHO SALINE AEROSOL SOLN 2 DIRECTE - No Longer Active ALBUTEROL 5 MG/ML SOLUTION .25 Q 4HR - No Longer Active Instructions Date Instruction Additional Infor mation No Information Assessments Type Assessment Date No Information Patient Care Teams Name Effective Dates (start - stop) Status Members No Information
--- OUTSIDE RECORDS SUMMARY | 2025-03-06 14:44 | XMS_ITS | Continuity of Care Document ---
Author Organization [facility] Address [address] [place] [address] Phone Care Team Providers Care Bark Fitter Name Role Phone Conversion MD, Doctor Unavailable [...] Diagnoses Date Provider Providers Copied on Encounter [facility], [address], [place], [place], [id number], [place] tel:[phone] Conversion Department No Information 1 Conversion Doctor. [facility] [place], [address], . Family History Family Member Type Diagnosis Age At Onset No Information Payers Payer name Insurance type Covered republican ID Authoriza tion(s) No Information Social History [...]
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
[2025-03-06 15:28] LABS: Hematocrit 36.1 % (42.0-52.0); Hemoglobin 12.3 g/dL (14.0-18.0); Immature Granulocyte Percent A 0.7 % (0-0.5); Lymphocytes Absolute Auto 1.81 K/mm3 (0.9-3.2); Mean Corpuscular HGB Conc 34.1 g/dl (32-36); Mean Corpuscular Hemoglobin 29.3 pg (26-34); Mean Corpuscular Volume 86.0 fl (80-100); Nucleated Red Blood Cells Absolute Auto 0.000 K/mm3 (0.0-0.012); Nucleated Red Blood Cells Perc 0.0 % (0.0-0.2); Platelet Count Result 627 k/mm3 (150-375); Red Blood Count 4.20 M/mm3 (4.6-6.20); White Blood Count 18.9 K/mm3 (4.5-10.0)
[2025-03-06 15:40] LABS: Anion Gap 6 mmol/L (4-12); Blood Urea Nitrogen 14 mg/dL (9-20); Calcium 8.4 mg/dL (8.4-10.2); Carbon Dioxide 27 mmol/L (22-30); Chloride 95 mmol/L (98-107); Estimated CRCL calculation 159 ml/min; Estimated Glomerular Filt Rate > 60; Glucose 120 mg/dL (65-110); Potassium 4.0 mmol/L (3.4-5.0); Sodium 128 mmol/L (137-145)
[2025-03-06] MEDS: MORPHINE SULFATE (*CRX) 2 MG/ML INJ IV PUSH (18:10)
[2025-03-06 18:34] LABS: CRP 18.3 mg/dL (<1.0)
--- NOTE | 2025-03-06 19:23 | PC.NURSE ---
[facility] transfer line called for pt update. states pt will be a direct admit and currently there is no beds available.
[2025-03-06] MEDS: metroNIDAZOLE 500 MG/ISO 100ML 500 MG/100 ML BAG 100 MG IVPB (19:46)
[2025-03-06] MEDS: cefTRIAXone 2 GM in SODIUM CHLORIDE 0.9% IV 100 ML 200 ML IVPB (19:50)
[2025-03-06] MEDS: PROCHLORPERAZINE EDISYLATE 10 MG/2 ML VIAL IV PUSH (19:54)
[2025-03-06] MEDS: VANCOMYCIN 1,500 MG/NS 500 ML 1,500 MG/500 ML BAG 250 MG IVPB (20:30)
[2025-03-06] MEDS: ACETAMINOPHEN 500 MG TABLET 1000 MG PO (20:34)
[2025-03-07] VITALS (11 sets, daily range): BP systolic 108–130; BP diastolic 64–88; PULSE 84–103; RESP 12–18; TEMP 36.7–37.2; O2SAT 93–100
[2025-03-07 06:34] LABS: Estimated CRCL calculation 143 ml/min; Estimated Glomerular Filt Rate > 60
[2025-03-07] MEDS: VANCOMYCIN HCL 1,000 MG in SODIUM CHLORIDE 0.9% IV 250 ML 250 MG IVPB ×2 (08:09→20:12)
--- NOTE | 2025-03-07 08:52 | PC.NURSE ---
Leigh from [facility] called for a pt update. No bed available at this time. will call when one becomes available
--- NOTE | 2025-03-07 11:52 | PC.NURSE ---
Per bedside report patient had a perirectal abscess that apparently burst last night-draining large amount of foul secretions-patient reporting decreased pain in hemorrhoid after that. Patient only reporting back discomfort from surgery at this time
[2025-03-07] MEDS: cefTRIAXone 1 GM in SODIUM CHLORIDE 0.9% IV 50 ML 100 ML IVPB (12:40)
[2025-03-07] MEDS: metroNIDAZOLE 500 MG/ISO 100ML 500 MG/100 ML BAG 100 MG IVPB (12:40)
[2025-03-07] MEDS: oxyCODONE HCL (*CRX) 5 MG TAB IR 10 MG PO (18:59)
--- NOTE | 2025-03-07 22:03 | PC.NURSE ---
Report to EMS transport team-patient moved to their stretcher with 3 man [id number] in place, workman catheter draining to gravity bag. Patient tolerated well
== END 2025-03-07 22:04 | disposition short-term general hospital (02) ==
PROVIDERS: Emergency Provider Student in an Organized Health Care Education/Training Program
DX: G06.1 Intraspinal abscess and granuloma (principal); A41.9 Sepsis, unspecified organism
CPT/HCPCS: 36415; 72158; 74177; 80048; 82565; 85025; 85652; 86140; 96365; 96366; 96367; 96368; 96375; 99285; A9270; A9577; J0696; J0780; J1836; J2270; J3373; J7050; Q9967